=== PATIENT | female | born 1990 | race Caucasian/White ===

== ENCOUNTER 2016-07-16 23:32 | Emergency (ER) | payer OTHER | END 2016-07-17 00:50 | disposition home or self-care (01) | LOC: CFTX 23:32 | DX: N75.1 Abscess of Bartholin's gland (principal); F17.210 Nicotine dependence, cigarettes, uncomplicated | CPT/HCPCS: 56420; 99283; J1885 ==

== ENCOUNTER 2016-07-20 02:00 | Emergency (ER) | payer OTHER | END 2016-07-20 03:00 | disposition left against medical advice (07) | LOC: CED 02:00 | DX: Z53.21 Procedure and treatment not carried out due to patient leaving prior to being seen by health care provider (principal) ==

== ENCOUNTER 2016-07-21 01:45 | Emergency (ER) | payer OTHER | END 2016-07-21 02:00 | disposition left against medical advice (07) | LOC: CED 01:45 | DX: Z53.21 Procedure and treatment not carried out due to patient leaving prior to being seen by health care provider (principal) ==

== ENCOUNTER 2016-09-23 22:26 | Emergency (ER) | payer OTHER ==
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
[2016-09-24] LABS: URINE SOURCE CLEAN CATCH
[2016-09-24 00:09] LABS: URINE APPEARANCE CLOUDY; URINE BILIRUBIN NEG (NEG); URINE BLOOD NEG (NEG); URINE COLOR DK YELLOW; URINE GLUCOSE NEG (NEG); URINE KETONE 1+ (NEG); URINE LEUKOCYTE ESTERASE TRACE (NEG); URINE NITRATE NEG (NEG); URINE PH 6.5 (5-8); URINE PROTEIN 1+ (NEG); URINE SPECIFIC GRAVITY 1.026 (1.003-1.035)
[2016-09-24 00:12] LABS: CULTURE INDICATED? YES; URINE BACTERIA AUWI 2+ (NEGATIVE); URINE SQUAMOUS EPITHELIAL CELL MOD /[HPF]
[2016-09-24 00:29] LABS: U HYALINE CASTS AUWI 0-2 /[LPF]; URINE CRYSTALS CALCIUM OXALATE /[HPF]
== END 2016-09-24 01:29 | disposition home or self-care (01) ==
LOC: CED 22:26
PROVIDERS: Emergency Medicine
DX: S02.642A Fracture of ramus of left mandible, initial encounter for closed fracture (principal); F17.200 Nicotine dependence, unspecified, uncomplicated; Y92.410 Unspecified street and highway as the place of occurrence of the external cause; Y04.2XXA Assault by strike against or bumped into by another person, initial encounter
CPT/HCPCS: 70486; 81003; 84703; 87086; 87088; 87186; 90715; 99284